=== PATIENT | female | born 1950 | race Caucasian/White ===

== ENCOUNTER → 2016-10-13 | Outpatient (CLI) | payer BC, OTHER ==
[~2016-10-13] MED LIST: ALIGN4 MG PO; ASPIRIN EC81 MG PO; CEFTIN500 MG PO; FLONASE 50 MCG/16 GM NOSE; HUMIBID LA (MU600 MG PO; IMBRUVICA140 MG PO; LOPRESSOR50 MG PO; TESSALON PERLE100 MG PO; THERAGRAN-M1 TAB PO
== END | disposition disaster alternative care site (69) ==
LOC: LNHI 14:38
DX: I50.31 Acute diastolic (congestive) heart failure (principal)

== ENCOUNTER → 2017-03-30 | Outpatient (CLI) | payer BC | END | disposition disaster alternative care site (69) | LOC: GRAD 09:43 | DX: R91.8 Other nonspecific abnormal finding of lung field (principal); J18.1 Lobar pneumonia, unspecified organism ==